=== PATIENT | female | born 1995 | race Caucasian/White ===

== ENCOUNTER 2020-09-02 11:39 | Emergency (ER) | payer MEDICAID ==
--- NOTE | 2020-09-02 12:05 | EDM.PDOC ---
ED HPI GENERAL MEDICAL PROBLEM - General Chief Complaint: General Stated Complaint: PT FELL Time Seen by Provider: 09/02/20 11:58 - History of Present Illness INITIAL COMMENTS - FREE TEXT/NARRATIVE: History of present illness: [] Mom fell forward holding the child and she is 40 weeks due to be induced in 3 days. She has no complaint. Review of systems: As per history of present illness and below otherwise all systems reviewed and negative. Past medical history: As per history of present illness and as reviewed below otherwise noncontributory. Surgical history: As per history of present illness and as reviewed below otherwise noncontributory. Social history: No reported history of drug or alcohol abuse. Family history: As per history of present illness and as reviewed below otherwise noncontributory. Physical exam: Constitutional - well developed, well-nourished and in no acute distress HEENT - normocephalic, no evidence of trauma - external nose and mouth normal - no mass in neck and no JVD - mucosae moist EYES - full EOM, PERRL, no icterus - no evidence of inflammation, injection, or drainage Respiratory - no respiratory distress, equal bilateral expansion, lungs clear to auscultation and no abnormal lung sounds Cardiovascular - Regular Rhythm with S1 and S2 appreciated and no murmur, gallop or rub. GI - abdomen soft with term fundus- normal bowel sounds - no guard or rebound Musculoskeletal no gross deformity of long bones or joints - no tenderness, swelling or edema Neurologic - Alert and oriented times four - CN II-XII grossly intact - motor sensory and coordination symmetrically normal Psychiatric - appropriate mood and affect with normal thought content Hematologic - No petechiae or purpura - mucosa appropriate color and sclera not pale - normal nail bed color and refill Integument - no rash or evidence of trauma - normal turgor Diagnostics: [] Therapeutics: [] Impression: [] Plan: [] Definitive disposition and diagnosis as appropriate pending reevaluation and review of above. - Related Data Allergies Allergy/AdvReac Type Severity Reaction Status Date / Time latex Allergy Rash Verified 09/01/20 08:45 Home Meds: Home Meds Acetaminophen [Tylenol] 2 tab PO ASDIRECTED PRN 09/01/20 [History] Docusate Sodium 1 tab PO DAILY 09/01/20 [History] Pnv No.95/Ferrous Fum/Folic AC [ Vitamin Tablet] 1 tab PO DAILY 09/01/20 [History] ED ROS GENERAL - Review of Systems Review Of Systems: Comprehensive ROS is negative, except as noted in HPI. ED EXAM, GENERAL - Physical Exam Exam: See Below Free Text/Narrative:: My physical exam is in the HPI. C-spine cleared by Nexus criteria Departure - Departure Time of Disposition: 12:04 Disposition: Home, Self-Care 01 Condition: Good Clinical Impression: Fall, Term - Discharge Information Instructions: Signs and Symptoms of Labor Referrals: PCP,None [Primary Care Provider] - Additional Instructions: You should have monitoring as determined by your sdc teacher. [facility] [address] [place] [id number] [facility] [address] [place] [id number] The following information is given to patients seen in the emergency department who are being discharged to home. This information is to outline your options for follow-up care. We provide all patients seen in our emergency department with a follow-up referral. The need for follow-up, as well as the timing and circumstances, are variable depending upon the specifics of your emergency department visit. If you don't have a primary care physician on staff, we will provide you with a referral. We always advise you to contact your personal physician following an emergency department visit to inform them of the circumstance of the visit and for follow-up with them and/or the need for any referrals to a consulting specialist. The emergency department will also refer you to a specialist when appropriate. This referral assures that you have the opportunity for follow-up care with a specialist. All of these measure are taken in an effort to provide you with optimal care, which includes your follow-up. Under all circumstances we always encourage you to contact your private physician who remains a resource for coordinating your care. When calling for follow-up care, please make the office aware that this follow-up is from your recent emergency room visit. If for any reason you are refused follow-up, please contact the [facility] Emergency Department at and asked to speak to the emergency department charge nurse.
== END 2020-09-02 12:28 | disposition home or self-care (01) ==
LOC: MW.ED 11:39
DX: Z04.3 Encounter for examination and observation following other accident (principal); Z91.040 Latex allergy status; Z3A.40 40 weeks gestation of pregnancy
CPT/HCPCS: 99282; 99283

== ENCOUNTER 2020-09-02 12:44 | Inpatient (IN) | payer MEDICAID ==
[2020-09-02] MEDS ORDERED: Carboprost Tromethamine 250 MCG/1 ML Amp IM PRN (13:10)
[2020-09-02] MEDS ORDERED: Misoprostol 200 MCG Tab PO PRN (13:10)
[2020-09-02] MEDS ORDERED: Lidocaine 1% 50 ML MDV INJECT PRN (13:10)
[2020-09-02] MEDS ORDERED: Citric Acid/Sodium Citrate Solution 30 ML Cup PO ONE (13:10)
[2020-09-02] MEDS ORDERED: Sodium Chloride 0.9% 2.5 ML Syringe FLUSH PRN (13:10)
[2020-09-02] MEDS ORDERED: Tranexamic Acid 1,000 MG in Sodium Chloride 0.9% 100 ML IV PRN ×2 (13:10→15:06)
[2020-09-02] MEDS ORDERED: Water For Irrigation,Sterile 1,000 ML Container IRR PRN (13:10)
[2020-09-02] MEDS ORDERED: Sodium Chloride 0.9% 10 ML Syringe FLUSH PRN (13:10)
[2020-09-02] MEDS ORDERED: Sodium Chloride 0.9% 10 ML SDV IV PRN (13:10)
[2020-09-02] MEDS ORDERED: Butorphanol 1 MG/ML SDV IVPUSH PRN (13:10)
[2020-09-02] MEDS ORDERED: Methylergonovine 0.2 MG/1 ML Amp IM PRN ×2 (13:10→15:06)
[2020-09-02] MEDS ORDERED: ceFAZolin 2 GM in Premix Bag 1 BAG IV ONE (13:10)
[2020-09-02] MEDS ORDERED: Nalbuphine 10 MG/1 ML Vial IVPUSH PRN (13:10)
[2020-09-02] MEDS ORDERED: Oxytocin/0.9 % Sodium Chloride 30 UNIT/500 ML BAG IV SCH ×2 (13:15)
[2020-09-02] MEDS ORDERED: Lactated Ringers 1,000 ML IV SCH ×3 (13:15→15:15)
[2020-09-02] MEDS ORDERED: fentaNYL 250 MCG/5 ML SDV ONE (13:47)
[2020-09-02] MEDS ORDERED: Propofol 200 MG/20 ML SDV ONE (13:47)
[2020-09-02] MEDS ORDERED: Oxytocin 10 Units/1 ML SDV ONE ×2 (14:01→14:30)
[2020-09-02] MEDS ORDERED: Succinylcholine/Sod PF 100 MG/5 ML SYRINGE IV ONE (14:01)
[2020-09-02] MEDS ORDERED: Ondansetron 4 MG/2 ML SDV ONE (14:01)
[2020-09-02] MEDS ORDERED: Metoclopramide 10 MG/2 ML SDV ONE (14:01)
--- NOTE | 2020-09-02 15:01 | PCM.PREANE ---
Preanesthetic Assessment - Anesthesia/Transfusion/Family Hx Anesthesia History: Unknown Family History of Anesthesia Reaction: No - Physical Assessment NPO Status Date: 09/02/20 NPO Status Time: 11:00 (banana 1100, no breakfast, some water after that) Height: 5 ft 4 in Weight: 132 lb ASA Class: 2E Mental Status: Alert & Oriented x3 Airway Class: Mallampati = 2 Dentition: Reports: Normal Dentition ROM/Head Extension: Full Lungs: Normal Respiratory Effort Cardiovascular: Regular Rhythm - Lab Values: Laboratory Last Values WBC 19.01 K/uL (4.0-11.0) H 09/02/20 13:36 RBC 4.14 M/uL (4.30-5.90) L 09/02/20 13:36 Hgb 13.2 g/dL (12.0-16.0) 09/02/20 13:36 Hct 38.9 % (36.0-46.0) 09/02/20 13:36 MCV 94.0 fL (80.0-98.0) 09/02/20 13:36 MCH 31.9 pg (27.0-32.0) 09/02/20 13:36 MCHC 33.9 g/dL (31.0-37.0) 09/02/20 13:36 RDW Std Deviation 48.2 fl (28.0-62.0) 09/02/20 13:36 RDW Coeff of Gene 14 % (11.0-15.0) 09/02/20 13:36 Plt Count 213 K/uL (150-400) 09/02/20 13:36 MPV 12.20 fL (7.40-12.00) H 09/02/20 13:36 Nucleated RBC % 0.0 /100WBC 09/02/20 13:36 Nucleated RBCs # 0 K/uL 09/02/20 13:36 - Allergies Allergies/Adverse Reactions: Allergies Allergy/AdvReac Type Severity Reaction Status Date / Time latex Allergy Rash Verified 09/01/20 08:45 PreAnesthesia Questionnaire - Past Health History Medical/Surgical History: Denies Medical/Surgical History [employer] History: Reports: - Infectious Disease History Infectious Disease History: Reports: None - Past Surgical History Female Surgical History: Reports: Section - HOME MEDS Home Medications: Home Meds Acetaminophen [Tylenol] 2 tab PO ASDIRECTED PRN 09/01/20 [History] Docusate Sodium 1 tab PO DAILY 09/01/20 [History] Pnv No.95/Ferrous Fum/Folic AC [ Vitamin Tablet] 1 tab PO DAILY 09/01/20 [History] - CURRENT (IN HOUSE) MEDS Current Meds: Current Medications Butorphanol Tartrate (Butorphanol 1 Mg/Ml Sdv) 1 mg IVPUSH Q1H PRN PRN Reason: Pain (severe 7-10) Carboprost Tromethamine (Carboprost Tromethamine 250 Mcg/1 Ml Amp) 250 mcg IM ASDIRECTED PRN PRN Reason: Post Hemorrhage Lactated Ringer's (Ringers, Lactated) 1,000 mls @ 500 mls/hr IV BOLUS EVELINA Oxytocin/Sodium Chloride (Oxytocin 30 Unit/500 Ml-Ns) 30 unit in 500 mls @ 250 mls/hr IV TITRATE EVELINA Lactated Ringer's (Ringers, Lactated) 1,000 mls @ 150 mls/hr IV ASDIRECTED EVELINA Oxytocin/Sodium Chloride (Oxytocin 30 Unit/500 Ml-Ns) 30 unit in 500 mls @ 999 mls/hr IV TITRATE EVELINA Tranexamic Acid 1,000 mg/ (Sodium Chloride) 110 mls @ 660 mls/hr IV ONETIME PRN PRN Reason: Bleeding Lidocaine HCl (Lidocaine 1% 50 Ml Mdv) 50 ml INJECT ONETIME PRN PRN Reason: Laceration repair Methylergonovine Maleate (Methylergonovine 0.2 Mg/1 Ml Amp) 0.2 mg IM ASDIRECTED PRN PRN Reason: Post Hemorrhage Misoprostol (Misoprostol 200 Mcg Tab) 200 mcg PO ONETIME PRN PRN Reason: Post Hemorrhage Nalbuphine HCl (Nalbuphine 10 Mg/1 Ml Vial) 10 mg IVPUSH Q1H PRN PRN Reason: Pain (severe 7-10) Sodium Chloride (Sodium Chloride 0.9% 10 Ml Syringe) 10 ml FLUSH ASDIRECTED PRN PRN Reason: Keep Vein Open Sodium Chloride (Sodium Chloride 0.9% 2.5 Ml Syringe) 2.5 ml FLUSH ASDIRECTED PRN PRN Reason: Keep Vein Open Sodium Chloride (Sodium Chloride 0.9% 10 Ml Sdv) 10 ml IV ASDIRECTED PRN PRN Reason: IV Use Sterile Water (Water For Irrigation,Sterile 1,000 Ml Container) 1,000 ml IRR ASDIRECTED PRN PRN Reason: delivery Discontinued Medications Citric Acid/Sodium Citrate (Citric Acid/Sodium Citrate Solution 30 Ml Cup) 30 ml PO ONETIME ONE Stop: 09/02/20 13:11 Fentanyl (Fentanyl 250 Mcg/5 Ml Sdv) Confirm Administered Dose 250 mcg .ROUTE .STK-MED ONE Stop: 09/02/20 13:48 Cefazolin Sodium/Dextrose 2 gm (/ Premix) 50 mls @ 100 mls/hr IV ONETIME ONE Stop: 09/02/20 13:39 Cefazolin Sodium/Dextrose (Ancef 2 Gm/50 Ml) Confirm Administered Dose 50 mls @ as directed .ROUTE .STK-MED ONE Stop: 09/02/20 14:17 Metoclopramide HCl (Metoclopramide 10 Mg/2 Ml Sdv) Confirm Administered Dose 10 mg .ROUTE .STK-MED ONE Stop: 09/02/20 14:02 Ondansetron HCl (Ondansetron 4 Mg/2 Ml Sdv) Confirm Administered Dose 4 mg .ROUTE .STK-MED ONE Stop: 09/02/20 14:02 Oxytocin (Oxytocin 10 Units/1 Ml Sdv) Confirm Administered Dose 20 unit .ROUTE .STK-MED ONE Stop: 09/02/20 14:02 Oxytocin (Oxytocin 10 Units/1 Ml Sdv) Confirm Administered Dose 10 unit .ROUTE .STK-MED ONE Stop: 09/02/20 14:31 Propofol (Propofol 200 Mg/20 Ml Sdv) Confirm Administered Dose 200 mg .ROUTE .STK-MED ONE Stop: 09/02/20 13:48
[2020-09-02] MEDS ORDERED: Bisacodyl 10 MG Supp RECTAL PRN (15:06)
[2020-09-02] MEDS ORDERED: Ondansetron 4 MG/2 ML SDV IVPUSH PRN (15:06)
[2020-09-02] MEDS ORDERED: Acetaminophen/oxyCODONE 325-5 MG Tab PO PRN (15:06)
[2020-09-02] MEDS ORDERED: diphenhydrAMINE 50 MG/ML SDV IVPUSH PRN (15:06)
[2020-09-02] MEDS ORDERED: Misoprostol 200 MCG Tab RECTAL PRN (15:06)
[2020-09-02] MEDS ORDERED: Oxytocin 10 Units/1 ML SDV IM PRN (15:06)
[2020-09-02] MEDS ORDERED: Lanolin 100% Cream 7 GM Tube TOP PRN (15:06)
--- NOTE | 2020-09-02 15:06 | PCM.PREANE ---
Preanesthetic Assessment - Anesthesia/Transfusion/Family Hx Anesthesia History: Prior Anesthesia Without Reaction Family History of Anesthesia Reaction: No - Physical Assessment NPO Status Date: 09/02/20 NPO Status Time: 11:00 Height: 5 ft 4 in Weight: 132 lb ASA Class: 2E Mental Status: Alert & Oriented x3 Airway Class: Mallampati = 2 Dentition: Reports: Normal Dentition ROM/Head Extension: Full Lungs: Normal Respiratory Effort Cardiovascular: Regular Rhythm - Lab Values: Laboratory Last Values WBC 19.01 K/uL (4.0-11.0) H 09/02/20 13:36 RBC 4.14 M/uL (4.30-5.90) L 09/02/20 13:36 Hgb 13.2 g/dL (12.0-16.0) 09/02/20 13:36 Hct 38.9 % (36.0-46.0) 09/02/20 13:36 MCV 94.0 fL (80.0-98.0) 09/02/20 13:36 MCH 31.9 pg (27.0-32.0) 09/02/20 13:36 MCHC 33.9 g/dL (31.0-37.0) 09/02/20 13:36 RDW Std Deviation 48.2 fl (28.0-62.0) 09/02/20 13:36 RDW Coeff of Gene 14 % (11.0-15.0) 09/02/20 13:36 Plt Count 213 K/uL (150-400) 09/02/20 13:36 MPV 12.20 fL (7.40-12.00) H 09/02/20 13:36 Nucleated RBC % 0.0 /100WBC 09/02/20 13:36 Nucleated RBCs # 0 K/uL 09/02/20 13:36 SARS-CoV-2 RNA (AMANDA) NEGATIVE (NEGATIVE) 09/02/20 13:28 - Allergies Allergies/Adverse Reactions: Allergies Allergy/AdvReac Type Severity Reaction Status Date / Time latex Allergy Rash Verified 09/01/20 08:45 - Acknowledgements Anesthesia Type Planned: General Anesthesia Pt an Appropriate Candidate for the Planned Anesthesia: Yes Alternatives and Risks of Anesthesia Discussed w Pt/Guardian: Yes Pt/Guardian Understands and Agrees with Anesthesia Plan: Yes Additional Comments: banana at 1100, no breakfast, some sips of water after banana called by OB for urgent C/S on a 25 year old G2 who fell, was scheduled for repeat C/S this Tuesday, and was in active labor Pt evaluated - she fell onto her hands and knees and dropped her 3 year old child while stepping over curb at this hospital she is not light headed, dizzy, nauseated, or vomiting. No known injuries from the fall pt does not feel any of her contractions FHT in nl range she has had no problems or complications PLAN start IV, fluid bolus, get ready start C/S in 1-2 hours when covid and other lab results back and fluid bolus in Pt had no sx of labor Retalked to OB abt 10 later - She wanted to get the C/S going NOW and did not want to wait because of what she said was an "abruption" pattern on her heart tracing. At her call, we urgently proceeded to C/S doing a general instead of SAB par Pt had no questions PreAnesthesia Questionnaire - Past Health History Medical/Surgical History: Denies Medical/Surgical History [employer] History: Reports: - Infectious Disease History Infectious Disease History: Reports: None - Past Surgical History Female Surgical History: Reports: Section - HOME MEDS Home Medications: Home Meds Acetaminophen [Tylenol] 2 tab PO ASDIRECTED PRN 09/01/20 [History] Docusate Sodium 1 tab PO DAILY 09/01/20 [History] Pnv No.95/Ferrous Fum/Folic AC [ Vitamin Tablet] 1 tab PO DAILY 09/01/20 [History] - CURRENT (IN HOUSE) MEDS Current Meds: Current Medications Butorphanol Tartrate (Butorphanol 1 Mg/Ml Sdv) 1 mg IVPUSH Q1H PRN PRN Reason: Pain (severe 7-10) Carboprost Tromethamine (Carboprost Tromethamine 250 Mcg/1 Ml Amp) 250 mcg IM ASDIRECTED PRN PRN Reason: Post Hemorrhage Lactated Ringer's (Ringers, Lactated) 1,000 mls @ 500 mls/hr IV BOLUS EVELINA Oxytocin/Sodium Chloride (Oxytocin 30 Unit/500 Ml-Ns) 30 unit in 500 mls @ 250 mls/hr IV TITRATE EVELINA Lactated Ringer's (Ringers, Lactated) 1,000 mls @ 150 mls/hr IV ASDIRECTED [facility] Oxytocin/Sodium Chloride (Oxytocin 30 Unit/500 Ml-Ns) 30 unit in 500 mls @ 999 mls/hr IV TITRATE EVELINA Tranexamic Acid 1,000 mg/ (Sodium Chloride) 110 mls @ 660 mls/hr IV ONETIME PRN PRN Reason: Bleeding Lidocaine HCl (Lidocaine 1% 50 Ml Mdv) 50 ml INJECT ONETIME PRN PRN Reason: Laceration repair Methylergonovine Maleate (Methylergonovine 0.2 Mg/1 Ml Amp) 0.2 mg IM ASDIRECTED PRN PRN Reason: Post Hemorrhage Misoprostol (Misoprostol 200 Mcg Tab) 200 mcg PO ONETIME PRN PRN Reason: Post Hemorrhage Nalbuphine HCl (Nalbuphine 10 Mg/1 Ml Vial) 10 mg IVPUSH Q1H PRN PRN Reason: Pain (severe 7-10) Sodium Chloride (Sodium Chloride 0.9% 10 Ml Syringe) 10 ml FLUSH ASDIRECTED PRN PRN Reason: Keep Vein Open Sodium Chloride (Sodium Chloride 0.9% 2.5 Ml Syringe) 2.5 ml FLUSH ASDIRECTED PRN PRN Reason: Keep Vein Open Sodium Chloride (Sodium Chloride 0.9% 10 Ml Sdv) 10 ml IV ASDIRECTED PRN PRN Reason: IV Use Sterile Water (Water For Irrigation,Sterile 1,000 Ml Container) 1,000 ml IRR ASDIRECTED PRN PRN Reason: delivery Discontinued Medications Citric Acid/Sodium Citrate (Citric Acid/Sodium Citrate Solution 30 Ml Cup) 30 ml PO ONETIME ONE Stop: 09/02/20 13:11 Fentanyl (Fentanyl 250 Mcg/5 Ml Sdv) Confirm Administered Dose 250 mcg .ROUTE .STK-MED ONE Stop: 09/02/20 13:48 Cefazolin Sodium/Dextrose 2 gm (/ Premix) 50 mls @ 100 mls/hr IV ONETIME ONE Stop: 09/02/20 13:39 Cefazolin Sodium/Dextrose (Ancef 2 Gm/50 Ml) Confirm Administered Dose 50 mls @ as directed .ROUTE .STK-MED ONE Stop: 09/02/20 14:17 Metoclopramide HCl (Metoclopramide 10 Mg/2 Ml Sdv) Confirm Administered Dose 10 mg .ROUTE .STK-MED ONE Stop: 09/02/20 14:02 Ondansetron HCl (Ondansetron 4 Mg/2 Ml Sdv) Confirm Administered Dose 4 mg .ROUTE .STK-MED ONE Stop: 09/02/20 14:02 Oxytocin (Oxytocin 10 Units/1 Ml Sdv) Confirm Administered Dose 20 unit .ROUTE .STK-MED ONE Stop: 09/02/20 14:02 Oxytocin (Oxytocin 10 Units/1 Ml Sdv) Confirm Administered Dose 10 unit .ROUTE .STK-MED ONE Stop: 09/02/20 14:31 Propofol (Propofol 200 Mg/20 Ml Sdv) Confirm Administered Dose 200 mg .ROUTE .STK-MED ONE Stop: 09/02/20 13:48
[2020-09-02] MEDS ORDERED: Oxytocin/Lactated Ringers 30 UNIT/500 ML BAG IV SCH (15:15)
--- NOTE | 2020-09-02 15:15 | PCM.OPNOTE ---
- General Post-Op/Procedure Note Date of Surgery/Procedure: 09/02/20 Operative Procedure(s): Repeat Lower segment Transverse . Emergent Findings: Live male delivered at 1422 , weight 3410g , 8/9 Moderate amount of bright red blood behind the placenta Pre Op Diagnosis: 25yo @ 39w0d with suspected Placenta abruption. S/p Fall Post-Op Diagnosis: same Anesthesia Technique: General ET Tube Primary Surgeon: Pati Pham Anesthesia Provider: Mic Pena Pathology: Placenta Fluid Replacement, Intraop: 2,100 Output, Urine Amount: 650 EBL in mLs: 600 Complications: None Condition: Good
[2020-09-02] MEDS: Acetaminophen/oxyCODONE 325-5 MG Tab PO PRN ×2 (15:22→20:10)
--- NOTE | 2020-09-02 15:44 | PCM.POSTAN ---
POST ANESTHESIA ASSESSMENT - MENTAL STATUS Mental Status: Alert - VITAL SIGNS Vital Signs: Last Vital Signs Temp Pulse 87 09/02/20 15:40 Resp 16 09/02/20 15:40 BP 127/71 09/02/20 15:40 Pulse Ox 97 09/02/20 15:40 - RESPIRATORY Respiratory Status: Respiratory Rate WNL - CARDIOVASCULAR CV Status: Pulse Rate WNL - GASTROINTESTINAL GI Status: No Symptoms - POST OP HYDRATION Hydration Status: Adequate & Stable
[2020-09-02] MEDS: Docusate Sodium 100 MG Cap PO SCH (20:10)
[2020-09-02] MEDS: Ketorolac 30 MG/ML SDV IVPUSH SCH ×2 (21:26→21:27)
[2020-09-03] MEDS: Ketorolac 30 MG/ML SDV IVPUSH SCH ×3 (03:43→15:32)
[2020-09-03] MEDS: Acetaminophen/oxyCODONE 325-5 MG Tab PO PRN ×4 (06:32→23:17)
--- NOTE | 2020-09-03 07:32 | PCM48HPAN ---
Post Anesthesia Note - EVALUATION WITHIN 48HRS OF ANESTHETIC Vital Signs in Normal Range: Yes Patient Participated in Evaluation: Yes Respiratory Function Stable: Yes Airway Patent: Yes Cardiovascular Function Stable: Yes Hydration Status Stable: Yes Pain Control Satisfactory: Yes Nausea and Vomiting Control Satisfactory: Yes Mental Status Recovered: Yes Vital Signs: Last Vital Signs Temp 37.1 C 09/03/20 03:30 Pulse 82 09/03/20 03:30 Resp 18 09/03/20 03:30 BP 113/61 09/03/20 03:30 Pulse Ox 98 09/03/20 03:30
[2020-09-03] MEDS: Docusate Sodium 100 MG Cap PO SCH ×2 (09:51→21:22)
--- NOTE | 2020-09-03 10:35 | OR ---
SURGEON: LENNIE PARKER DATE OF PROCEDURE: 09/02/2020 PREOPERATIVE DIAGNOSES: A 25-year-old G2, P 1-0-0-1 at 39 weeks 0 days with suspected placental abruption secondary to fall. POSTOPERATIVE DIAGNOSES: A 25-year-old G2, P 1-0-0-1 at 39 weeks 0 days with suspected placental abruption secondary to fall. PROCEDURE: Emergent repeat lower segment section. ESTIMATED BLOOD LOSS: 600. IV FLUIDS: 2100. URINE OUTPUT: 650. ANESTHESIA: General COMPLICATIONS: None. NOTES AND FINDINGS: A live male delivered at 1422. score is 8 and 9. Weight is 3410 g. Moderate amount of retroplacenta blood. BRIEF HISTORY ABOUT THE PATIENT: A 25-year-old G2, P 1-0-0-1 who was managed, has a low risk . However, initially in the , she was noted to have possible IUGR, which resolved and the patient continued with a low risk . However, the patient was coming to the clinic to get the COVID test and she fell in the hospital. When she came in and she when examined, her cervix was 2 cm. monitor showed tachy systole and as a result, the patient was said to have a suspected abruption and at 39 weeks she was at this point for emergent delivery. Anesthesia was consulted, who recommended general anesthesia instead of spinal. DESCRIPTION OF PROCEDURE: The patient was taken to the operating room where she was placed in the dorsal supine position with leftward tilt. General anesthesia was performed. Skin was 1420, the baby was out by in 2 minutes. A Pfannenstiel skin incision was made and carried down all the way to the fascia. The fascia was extended upwards and outwards manually and rectus muscle was in the midline manually and the abdomen was entered in bluntly. Edis was placed in without difficulty. A lower uterine incision was made above the bladder flap and the uterine incision was extended upwards and laterally. The fetus was in cephalic position, was brought to the level of incision with fundal pressure. Infant was delivered. The cord was clamped and cut. The mouth and nose were suctioned. The infant was handed over to the waiting manager medicaid and nursery team. The uterus was noted to be atonic, so an extra f 20 units of Pitocin was put in the bag 1L NS bag. Methergine was given 0.2 mg and Hemabate was also given because of continued atony. Also, uterine massage was also done. The placenta was delivered without any difficulty. The uterine cavity was cleaned with laparotomy sponge. The uterine incision was closed in 2 layers, first layer was closed with 0 Vicryl in a locking layer, 2nd layer was closed with 0 Monocryl. The peritoneum was then closed with 2-0 Vicryl after the uterine incision was inspected and noted to be hemostatic. The Edis retractor was removed. The uterine incision was inspected, noted to be hemostatic. Both tubes were inspected, noted to be normal. The ovaries were also noted to be normal. Then, the peritoneum was closed with 2-0 Vicryl. The incision was inspected. The fascia was inspected, noted to be hemostatic. The fascia was closed with 0 Vicryl in a continuous fashion. The skin was closed with 3-0 Monocryl on a Rey needle. All instrument and pad counts were correct x3. The patient tolerated the procedure well and will be taken to the Labor and Delivery room in stable condition. SHENA SCHOFIELD /[id number] MTDRosa Maria
[2020-09-03] MEDS: Ibuprofen 800 MG Tab PO PRN (21:22)
--- NOTE | 2020-09-03 23:31 | PCM.PNPP ---
- General Info Date of Service: 09/03/20 Subjective Update: 25yo P2 s/p repeat for suspected abruption, Patient doing well Breast feeding , tolerating regular diet , good pain control Functional Status: Reports: Pain Controlled, Tolerating Diet, Ambulating - Review of Systems General: Reports: No Symptoms HEENT: Reports: No Symptoms Pulmonary: Reports: No Symptoms Cardiovascular: Reports: No Symptoms Gastrointestinal: Reports: No Symptoms Genitourinary: Reports: No Symptoms Musculoskeletal: Reports: No Symptoms Skin: Reports: No Symptoms Neurological: Reports: No Symptoms Psychiatric: Reports: No Symptoms - General Info Date of Service: 09/03/20 - Patient Data Vital Signs - Most Recent: Last Vital Signs Temp 36.8 C 09/03/20 16:00 Pulse 77 09/03/20 23:15 Resp 16 09/03/20 23:15 BP 106/62 09/03/20 23:15 Pulse Ox 98 09/03/20 23:15 Weight - Most Recent: 56.699 kg I&O - Last 24 Hours: Intake & Output 09/03/20 09/03/20 09/04/20 14:59 22:59 06:59 Output Total 150 Balance -150 Med Orders - Current: Current Medications Bisacodyl (Bisacodyl 10 Mg Supp) 10 mg RECTAL ONETIME PRN PRN Reason: Constipation Butorphanol Tartrate (Butorphanol 1 Mg/Ml Sdv) 1 mg IVPUSH Q1H PRN PRN Reason: Pain (severe 7-10) Carboprost Tromethamine (Carboprost Tromethamine 250 Mcg/1 Ml Amp) 250 mcg IM ASDIRECTED PRN PRN Reason: Post Hemorrhage Diphenhydramine HCl (Diphenhydramine 50 Mg/Ml Sdv) 25 mg IVPUSH Q6H PRN PRN Reason: Itching or Nausea Docusate Sodium (Docusate Sodium 100 Mg Cap) 100 mg PO BID [facility] Last Admin: 09/03/20 21:22 Dose: 100 mg Documented by: Emollient Ointment (Lanolin 100% Cream 7 Gm Tube) 0 gm TOP ASDIRECTED PRN PRN Reason: Sore Nipples Lactated Ringer's (Ringers, Lactated) 1,000 mls @ 500 mls/hr IV BOLUS [facility] Oxytocin/Sodium Chloride (Oxytocin 30 Unit/500 Ml-Ns) 30 unit in 500 mls @ 250 mls/hr IV TITRATE [facility] Lactated Ringer's (Ringers, Lactated) 1,000 mls @ 150 mls/hr IV ASDIRECTED [facility] Oxytocin/Sodium Chloride (Oxytocin 30 Unit/500 Ml-Ns) 30 unit in 500 mls @ 999 mls/hr IV TITRATE [facility] Tranexamic Acid 1,000 mg/ (Sodium Chloride) 110 mls @ 660 mls/hr IV ONETIME PRN PRN Reason: Bleeding Lactated Ringer's (Ringers, Lactated) 1,000 mls @ 125 mls/hr IV ASDIRECTED [facility] Oxytocin/Lactated Ringer's (Pitocin In Lr 30 Units/500 Ml) 30 unit in 500 mls @ 2 mls/hr IV TITRATE [facility]; Protocol Tranexamic Acid 1,000 mg/ (Sodium Chloride) 110 mls @ 660 mls/hr IV ONETIME PRN PRN Reason: Bleeding Ibuprofen (Ibuprofen 800 Mg Tab) 800 mg PO Q8H PRN PRN Reason: mild pain or fever Last Admin: 09/03/20 21:22 Dose: 800 mg Documented by: Lidocaine HCl (Lidocaine 1% 50 Ml Mdv) 50 ml INJECT ONETIME PRN PRN Reason: Laceration repair Methylergonovine Maleate (Methylergonovine 0.2 Mg/1 Ml Amp) 0.2 mg IM ASDIRECTED PRN PRN Reason: Post Hemorrhage Methylergonovine Maleate (Methylergonovine 0.2 Mg/1 Ml Amp) 0.2 mg IM ONETIME PRN PRN Reason: Excessive Vaginal Bleeding Misoprostol (Misoprostol 200 Mcg Tab) 200 mcg PO ONETIME PRN PRN Reason: Post Hemorrhage Misoprostol (Misoprostol 200 Mcg Tab) 1,000 mcg RECTAL ONETIME PRN PRN Reason: excessive bleeding Nalbuphine HCl (Nalbuphine 10 Mg/1 Ml Vial) 10 mg IVPUSH Q1H PRN PRN Reason: Pain (severe 7-10) Ondansetron HCl (Ondansetron 4 Mg/2 Ml Sdv) 4 mg IVPUSH Q4H PRN PRN Reason: Nausea/Vomiting Oxycodone/Acetaminophen (Acetaminophen/Oxycodone 325-5 Mg Tab) 1 tab PO Q4H PRN PRN Reason: Pain (severe 7-10) Last Admin: 09/03/20 01:30 Dose: 1 tab Documented by: Oxycodone/Acetaminophen (Acetaminophen/Oxycodone 325-5 Mg Tab) 2 tab PO Q4H PRN PRN Reason: Pain (severe 7-10) Last Admin: 09/03/20 23:17 Dose: 2 tab Documented by: Oxytocin (Oxytocin 10 Units/1 Ml Sdv) 10 unit IM ASDIRECTED PRN PRN Reason: Excessive Vaginal Bleeding Sodium Chloride (Sodium Chloride 0.9% 10 Ml Syringe) 10 ml FLUSH ASDIRECTED PRN PRN Reason: Keep Vein Open Sodium Chloride (Sodium Chloride 0.9% 2.5 Ml Syringe) 2.5 ml FLUSH ASDIRECTED PRN PRN Reason: Keep Vein Open Sodium Chloride (Sodium Chloride 0.9% 10 Ml Sdv) 10 ml IV ASDIRECTED PRN PRN Reason: IV Use Sterile Water (Water For Irrigation,Sterile 1,000 Ml Container) 1,000 ml IRR ASDIRECTED PRN PRN Reason: delivery Discontinued Medications Citric Acid/Sodium Citrate (Citric Acid/Sodium Citrate Solution 30 Ml Cup) 30 ml PO ONETIME ONE Stop: 09/02/20 13:11 Last Admin: 09/03/20 08:55 Dose: Not Given Documented by: Fentanyl (Fentanyl 250 Mcg/5 Ml Sdv) Confirm Administered Dose 250 mcg .ROUTE .STK-MED ONE Stop: 09/02/20 13:48 Cefazolin Sodium/Dextrose 2 gm (/ Premix) 50 mls @ 100 mls/hr IV ONETIME ONE Stop: 09/02/20 13:39 Last Admin: 09/03/20 00:09 Dose: Not Given Documented by: Cefazolin Sodium/Dextrose (Ancef 2 Gm/50 Ml) Confirm Administered Dose 50 mls @ as directed .ROUTE .STK-MED ONE Stop: 09/02/20 14:17 Ketorolac Tromethamine (Ketorolac 30 Mg/Ml Sdv) 30 mg IVPUSH Q6H [facility] Stop: 09/03/20 15:16 Last Admin: 09/03/20 15:32 Dose: 30 mg Documented by: Metoclopramide HCl (Metoclopramide 10 Mg/2 Ml Sdv) Confirm Administered Dose 10 mg .ROUTE .STK-MED ONE Stop: 09/02/20 14:02 Ondansetron HCl (Ondansetron 4 Mg/2 Ml Sdv) Confirm Administered Dose 4 mg .ROUTE .STK-MED ONE Stop: 09/02/20 14:02 Oxytocin (Oxytocin 10 Units/1 Ml Sdv) Confirm Administered Dose 20 unit .ROUTE .STK-MED ONE Stop: 09/02/20 14:02 Oxytocin (Oxytocin 10 Units/1 Ml Sdv) Confirm Administered Dose 10 unit .ROUTE .STK-MED ONE Stop: 09/02/20 14:31 Last Admin: 09/03/20 00:09 Dose: Not Given Documented by: Propofol (Propofol 200 Mg/20 Ml Sdv) Confirm Administered Dose 200 mg .ROUTE .STK-MED ONE Stop: 09/02/20 13:48 - Interaction Support Person: - Recovery Exam Fundal Tone: Firm Fundal Level: 2 Fingerbreadths Below Umbilicus Fundal Placement: Midline Lochia Amount: Scant Lochia Color: Rubra/Red Perineum Description: Intact, Minimal Bruising/Swelling Episiotomy/Laceration: None Bladder Status: Voiding Urinary Elimination: Voided Other Urinary Elimination, : Due to void - Exam General: Alert HEENT: Pupils Equal Neck: Supple Cardiovascular: Regular Rate, Regular Rhythm Extremities: Normal Inspection Wound/Incisions: Dressing Dry and Intact Neurological: No New Focal Deficit, Cranial Nerves Intact Psy/Mental Status: Alert - Problem List & Annotations (1) delivery delivered SNOMED Code(s): 578880629 Code(s): O82 - ENCOUNTER FOR DELIVERY WITHOUT INDICATION Status: Acute Current Visit: Yes - Problem List Review Problem List Initiated/Reviewed/Updated: Yes - My Orders Last 24 Hours: My Active Orders 09/03/20 21:15 Ibuprofen [Motrin] 800 mg PO Q8H PRN - Assessment Assessment:: 25yo P2 s/p , POD 1 Elevated WBC count , no fevers Ambulating , tolerating regular diet , - Plan Plan:: Regular diet Start Unasyn Pain control Incentive spirometry CBC in am
[2020-09-03] MEDS ORDERED: Ampicillin/Sulbactam Na 3 GM in Sodium Chloride 0.9% 100 ML IV SCH (23:45)
[2020-09-03] MEDS ORDERED: Sodium Chloride 0.9% 100 ML ONE (23:57)
[2020-09-04] MEDS: Ampicillin/Sulbactam Na 3 GM in Sodium Chloride 0.9% 100 ML IV SCH ×3 (00:28→12:26)
[2020-09-04] MEDS: Acetaminophen/oxyCODONE 325-5 MG Tab PO PRN ×2 (03:26→10:36)
[2020-09-04] MEDS: Ibuprofen 800 MG Tab PO PRN (06:06)
[2020-09-04] MEDS: Docusate Sodium 100 MG Cap PO SCH (10:38)
--- NOTE | 2020-09-04 12:40 | PCM.PNPP ---
- General Info Date of Service: 09/04/20 Subjective Update: 25yo P2 s/p repeat for suspected abruption, Patient doing well Breast feeding , tolerating regular diet , good pain control, voiding POD 2 , started on Unasyn last night due to high WBC [place] , [place] [id number] Functional Status: Reports: Pain Controlled, Tolerating Diet, Ambulating, Urinating - Review of Systems General: Reports: No Symptoms HEENT: Reports: No Symptoms Pulmonary: Reports: No Symptoms Cardiovascular: Reports: No Symptoms Gastrointestinal: Reports: No Symptoms Genitourinary: Reports: No Symptoms Musculoskeletal: Reports: No Symptoms Skin: Reports: No Symptoms Neurological: Reports: No Symptoms Psychiatric: Reports: No Symptoms - General Info Date of Service: 09/04/20 - Patient Data Vital Signs - Most Recent: Last Vital Signs Temp 36.7 C 09/04/20 12:00 Pulse 79 09/04/20 12:00 Resp 16 09/04/20 12:00 BP 111/63 09/04/20 12:00 Pulse Ox 96 09/04/20 12:00 Weight - Most Recent: 56.699 kg Lab Results - Last 24 Hours: Laboratory Results - last 24 hr 09/04/20 Range/Units 09:20 WBC 14.62 H (4.0-11.0) K/uL RBC 3.33 L (4.30-5.90) M/uL Hgb 10.7 L (12.0-16.0) g/dL Hct 31.6 L (36.0-46.0) % MCV 94.9 (80.0-98.0) fL MCH 32.1 H (27.0-32.0) pg MCHC 33.9 (31.0-37.0) g/dL RDW Std Deviation 49.3 (28.0-62.0) fl RDW Coeff of Gene 14 (11.0-15.0) % Plt Count 214 (150-400) K/uL MPV 11.60 (7.40-12.00) fL Nucleated RBC % 0.0 /100WBC Med Orders - Current: Current Medications Bisacodyl (Bisacodyl 10 Mg Supp) 10 mg RECTAL ONETIME PRN PRN Reason: Constipation Butorphanol Tartrate (Butorphanol 1 Mg/Ml Sdv) 1 mg IVPUSH Q1H PRN PRN Reason: Pain (severe 7-10) Carboprost Tromethamine (Carboprost Tromethamine 250 Mcg/1 Ml Amp) 250 mcg IM ASDIRECTED PRN PRN Reason: Post Hemorrhage Diphenhydramine HCl (Diphenhydramine 50 Mg/Ml Sdv) 25 mg IVPUSH Q6H PRN PRN Reason: Itching or Nausea Docusate Sodium (Docusate Sodium 100 Mg Cap) 100 mg PO BID ON LICENSE OF [facility] Last Admin: 09/04/20 10:38 Dose: 100 mg Documented by: Emollient Ointment (Lanolin 100% Cream 7 Gm Tube) 0 gm TOP ASDIRECTED PRN PRN Reason: Sore Nipples Lactated Ringer's (Ringers, Lactated) 1,000 mls @ 500 mls/hr IV BOLUS [facility] Oxytocin/Sodium Chloride (Oxytocin 30 Unit/500 Ml-Ns) 30 unit in 500 mls @ 250 mls/hr IV TITRATE [facility]INA Lactated Ringer's (Ringers, Lactated) 1,000 mls @ 150 mls/hr IV ASDIRECTED [facility] Oxytocin/Sodium Chloride (Oxytocin 30 Unit/500 Ml-Ns) 30 unit in 500 mls @ 999 mls/hr IV TITRATE [facility] Tranexamic Acid 1,000 mg/ (Sodium Chloride) 110 mls @ 660 mls/hr IV ONETIME PRN PRN Reason: Bleeding Lactated Ringer's (Ringers, Lactated) 1,000 mls @ 125 mls/hr IV ASDIRECTED ON LICENSE OF [facility] Oxytocin/Lactated Ringer's (Pitocin In Lr 30 Units/500 Ml) 30 unit in 500 mls @ 2 mls/hr IV TITRATE ON LICENSE OF [facility]; Protocol Tranexamic Acid 1,000 mg/ (Sodium Chloride) 110 mls @ 660 mls/hr IV ONETIME PRN PRN Reason: Bleeding Ampicillin Sodium/Sulbactam (Sodium 3 gm/ Sodium Chloride) 100 mls @ 200 mls/hr IV Q6H ON LICENSE OF [facility] Last Admin: 09/04/20 12:26 Dose: 200 mls/hr Documented by: Ibuprofen (Ibuprofen 800 Mg Tab) 800 mg PO Q8H PRN PRN Reason: mild pain or fever Last Admin: 09/04/20 06:06 Dose: 800 mg Documented by: Lidocaine HCl (Lidocaine 1% 50 Ml Mdv) 50 ml INJECT ONETIME PRN PRN Reason: Laceration repair Methylergonovine Maleate (Methylergonovine 0.2 Mg/1 Ml Amp) 0.2 mg IM ASDIRECTED PRN PRN Reason: Post Hemorrhage Methylergonovine Maleate (Methylergonovine 0.2 Mg/1 Ml Amp) 0.2 mg IM ONETIME PRN PRN Reason: Excessive Vaginal Bleeding Misoprostol (Misoprostol 200 Mcg Tab) 200 mcg PO ONETIME PRN PRN Reason: Post Hemorrhage Misoprostol (Misoprostol 200 Mcg Tab) 1,000 mcg RECTAL ONETIME PRN PRN Reason: excessive bleeding Nalbuphine HCl (Nalbuphine 10 Mg/1 Ml Vial) 10 mg IVPUSH Q1H PRN PRN Reason: Pain (severe 7-10) Ondansetron HCl (Ondansetron 4 Mg/2 Ml Sdv) 4 mg IVPUSH Q4H PRN PRN Reason: Nausea/Vomiting Oxycodone/Acetaminophen (Acetaminophen/Oxycodone 325-5 Mg Tab) 1 tab PO Q4H PRN PRN Reason: Pain (severe 7-10) Last Admin: 09/03/20 01:30 Dose: 1 tab Documented by: Oxycodone/Acetaminophen (Acetaminophen/Oxycodone 325-5 Mg Tab) 2 tab PO Q4H PRN PRN Reason: Pain (severe 7-10) Last Admin: 09/04/20 10:36 Dose: 2 tab Documented by: Oxytocin (Oxytocin 10 Units/1 Ml Sdv) 10 unit IM ASDIRECTED PRN PRN Reason: Excessive Vaginal Bleeding Sodium Chloride (Sodium Chloride 0.9% 10 Ml Syringe) 10 ml FLUSH ASDIRECTED PRN PRN Reason: Keep Vein Open Sodium Chloride (Sodium Chloride 0.9% 2.5 Ml Syringe) 2.5 ml FLUSH ASDIRECTED PRN PRN Reason: Keep Vein Open Sodium Chloride (Sodium Chloride 0.9% 10 Ml Sdv) 10 ml IV ASDIRECTED PRN PRN Reason: IV Use Sterile Water (Water For Irrigation,Sterile 1,000 Ml Container) 1,000 ml IRR ASDIRECTED PRN PRN Reason: delivery Discontinued Medications Citric Acid/Sodium Citrate (Citric Acid/Sodium Citrate Solution 30 Ml Cup) 30 ml PO ONETIME ONE Stop: 09/02/20 13:11 Last Admin: 09/03/20 08:55 Dose: Not Given Documented by: Fentanyl (Fentanyl 250 Mcg/5 Ml Sdv) Confirm Administered Dose 250 mcg .ROUTE .STK-MED ONE Stop: 09/02/20 13:48 Cefazolin Sodium/Dextrose 2 gm (/ Premix) 50 mls @ 100 mls/hr IV ONETIME ONE Stop: 09/02/20 13:39 Last Admin: 09/03/20 00:09 Dose: Not Given Documented by: Cefazolin Sodium/Dextrose (Ancef 2 Gm/50 Ml) Confirm Administered Dose 50 mls @ as directed .ROUTE .STK-MED ONE Stop: 09/02/20 14:17 Ampicillin Sodium/Sulbactam (Sodium 3 gm/ Sodium Chloride) 100 mls @ 200 mls/hr IV Q6H ON LICENSE OF [facility] Stop: 09/04/20 00:11 Last Admin: 09/04/20 01:24 Dose: Not Given Documented by: Sodium Chloride (Normal Saline) Confirm Administered Dose 100 mls @ as directed .ROUTE .STK-MED ONE Stop: 09/03/20 23:58 Ketorolac Tromethamine (Ketorolac 30 Mg/Ml Sdv) 30 mg IVPUSH Q6H [facility] Stop: 09/03/20 15:16 Last Admin: 09/03/20 15:32 Dose: 30 mg Documented by: Metoclopramide HCl (Metoclopramide 10 Mg/2 Ml Sdv) Confirm Administered Dose 10 mg .ROUTE .STK-MED ONE Stop: 09/02/20 14:02 Ondansetron HCl (Ondansetron 4 Mg/2 Ml Sdv) Confirm Administered Dose 4 mg .ROUTE .STK-MED ONE Stop: 09/02/20 14:02 Oxytocin (Oxytocin 10 Units/1 Ml Sdv) Confirm Administered Dose 20 unit .ROUTE .STK-MED ONE Stop: 09/02/20 14:02 Oxytocin (Oxytocin 10 Units/1 Ml Sdv) Confirm Administered Dose 10 unit .ROUTE .STK-MED ONE Stop: 09/02/20 14:31 Last Admin: 09/03/20 00:09 Dose: Not Given Documented by: Propofol (Propofol 200 Mg/20 Ml Sdv) Confirm Administered Dose 200 mg .ROUTE .STK-MED ONE Stop: 09/02/20 13:48 - Infant Interaction Support Person: - Recovery Exam Fundal Tone: Firm Fundal Level: 1 Fingerbreadths Below Umbilicus Fundal Placement: Midline Lochia Amount: Scant Lochia Color: Rubra/Red Perineum Description: Intact, Minimal Bruising/Swelling Episiotomy/Laceration: None Bladder Status: Voiding Urinary Elimination: Voided Other Urinary Elimination, : Due to void - Exam General: Alert HEENT: Pupils Equal Neck: Supple Lungs: Clear to Auscultation Cardiovascular: Regular Rate, Regular Rhythm GI/Abdominal Exam: Normal Bowel Sounds Wound/Incisions: Healing Well, Dressing Dry and Intact, No Drainage Neurological: No New Focal Deficit Psy/Mental Status: Alert - Problem List & Annotations (1) delivery delivered SNOMED Code(s): 476372051 Code(s): O82 - ENCOUNTER FOR DELIVERY WITHOUT INDICATION Status: Acute Current Visit: Yes - Problem List Review Problem List Initiated/Reviewed/Updated: Yes - My Orders Last 24 Hours: My Active Orders 09/03/20 21:15 Ibuprofen [Motrin] 800 mg PO Q8H PRN 09/04/20 00:15 Ampicillin/Sulbactam Na [Unasyn] 3 gm Sodium Chloride 0.9% [Normal Saline] 100 ml IV Q6H 09/04/20 09:20 CBC WITH MANUAL DIFF [HEME] Routine 09/04/20 10:50 Ready for Discharge [RC] PER UNIT ROUTINE - Assessment Assessment:: 25yo P2 s/p , POD 2 WBC count - normal , no fevers Ambulating , tolerating regular diet , - Plan Plan:: Discharge home by noon today Pain control as needed Infection precautions Follow up in 2 and 4 weeks No heavy lifting , no intercourse for 6 weeks
== END 2020-09-04 15:10 | disposition home or self-care (01) | DRG 788 ==
LOC: MW.OBCHECK 12:44 → MW.OB 12:46 → MW.OBCHECK 13:05 → OBSVTOIN 13:11 → MW.OB 19:56
PROVIDERS: ADMIT Obstetrics & Gynecology; ATTEND Obstetrics & Gynecology
PROC: 10D00Z1 Extraction of Products of Conception, Low, Open Approach (ICD-10-PCS; principal; 2020-09-02)
DX: O34.211 Maternal care for low transverse scar from previous cesarean delivery (principal); Z37.0 Single live birth; Z3A.39 39 weeks gestation of pregnancy; Z20.822 Contact with and (suspected) exposure to COVID-19; Z91.040 Latex allergy status
CPT/HCPCS: 36415; 59025; 82803; 85007; 85025; 85027; 86592; 86850; 86900; 86901; 88307; A9270-GY; J0295; J0330; J0690; J1885; J2405; J2590; J2704; J2765; J3010; U0002